=== PATIENT | male | born 1955 | race Caucasian/White ===

== ENCOUNTER → 2018-08-07 | Outpatient (CLI) | payer OTHER, SELFPAY ==
[2014-03-26 10:17] VITALS: BMI 30.4
[2018-08-07 12:52] LABS: PSA,Total - Annual Screen 1.33 ng/mL (0.00-4.00)
== END | disposition home or self-care (01) ==
LOC: LAB 11:26
PROVIDERS: Family Provider Nurse Practitioner Family; PCP Nurse Practitioner Family; Referring Provider Urology; Visit Provider Urology
DX: Z12.5 Encounter for screening for malignant neoplasm of prostate (principal)
CPT/HCPCS: 36415; 84153; G0103

== ENCOUNTER 2018-11-01 08:05 | Emergency (ER) | payer OTHER, SELFPAY ==
[2018-11-01 08:06] VITALS: BP 156/94; PULSE 50; RESP 19; TEMP 36.4; O2SAT 97; BMI 29.9
--- NOTE | 2018-11-01 08:20 | CT_ITS ---
STUDY: CT ABDOMEN AND PELVIS WITHOUT CONTRAST REASON FOR EXAM: Male, 62 years old. Left flank pain. History of kidney stones. Prior lithotripsy. RADIATION DOSAGE (If Supplied By Facility): CTDIvol = ( 19.62 ) mGy, DLP = ( 1093.39 ) mGycm TECHNIQUE: Transaxial images were obtained from the dome of the diaphragm to the symphysis pubis without oral contrast, and without intravenous contrast. Sagittal and coronal images were reconstructed. Individualized dose optimization techniques were used for this CT. COMPARISON: None. FINDINGS: Minimal increased markings at the lung bases suggest some mild scarring. Noncalcified 3 mm nodule in the posterior aspect of the right lower lobe. The visualized portions of the heart are within normal limits. Normal liver. There are surgical clips in the gallbladder fossa consistent with a prior cholecystectomy. Normal spleen. Normal pancreas. Normal bilateral adrenal glands. Normal right kidney. There is evidence of left perinephric stranding. Mild degree of left hydronephrosis and left hydroureter due to a 3 mm calculus in the distal portion of the left ureter. Tiny nonobstructive catheters in the upper pole calyx of the left kidney. There is a small hiatal hernia. Normal small intestine. There are multiple colonic diverticula consistent with diverticulosis. There is a calcified appendicolith. This measures 3.1 mm. There is scattered atherosclerotic calcification of the abdominal aorta, without a demonstrated aneurysm. Normal inferior vena cava. Normal retroperitoneum. Normal urinary bladder. There are prostatic calcifications. Normal abdominal wall. There are degenerative changes of the visualized lumbar spine. CT/Abdomen/Pelvis without Cont IMPRESSION: Mild degree of left hydronephrosis and left perinephric stranding due to a 3 mm calculus in the distal portion of the left ureter. Tiny nonobstructive calculus in the upper pole of the left kidney. Sigmoid diverticulosis. Electronically Signed: Cem Lerner, at 9:57 EDT , Service support ,
--- NOTE | 2018-11-01 08:21 | ED.VISSUMM ---
- ER Visit Summary Date of Service: 11/01/18 Chief Complaint: Left flank pain History of Present Illness: The patient is a 62 M who presents with left flank pain that began today. Patient states the pain began suddenly this morning. Patient describes the pain is stabbing. Patient states the pain is similar to prior kidney stone. Patient states nothing makes the pain better or worse. Patient does admit to some nausea and vomiting this morning. Patient admits to breaking out into a sweat with the pain. Patient denies any fevers or chills. Patient denies any dysuria or hematuria. Patient denies any chest pain or shortness of breath. Physical Examination: Vital signs are stable. Patient is afebrile. Patient is in no acute distress. Oral mucosa is pink and moist. Neck is supple. Trachea is midline. There is no JVD noted. Heart was regular rate and rhythm. Lungs are clear and equal bilaterally. Abdomen is soft. Bowel sounds are normal. There is left CVA tenderness. There is no rebound or guarding noted. Cranial nerves II through XII are intact. There are no focal motor or sensory deficits noted. Test Results: CBC was normal. Basic metabolic profile showed a slightly elevated glucose of 172, BUN of 19, and a creatinine of 1.74. There are no prior lab results to compare with. Urinalysis does not show any evidence of urinary tract infection. CT scan of the abdomen and pelvis shows a 3 mm left distal ureteral calculus with hydronephrosis and hydroureter. Emergency Department Course and Treatment: Patient was given IV fluids, morphine, Toradol, and Zofran here. Patient is feeling better on reevaluation. Patient states he has seen Dr. Gomez in the past. Patient was instructed to follow-up with them in 3-5 days. Patient was given prescription for Snyder. Patient was instructed to drink plenty of fluids. Patient understood and was agreeable with the plan. All questions were answered. Disposition: Discharge home Impression: Left ureteral calculus This note was generated with [employer] dictation software. It may contain incorrect words, spelling, and punctuation that were not noted in review of the chart prior to signing ED Disposition - Plan for ED Patient: Disposition: Home or Assisted Living Diagnosis: Left ureteral calculus Instructions: KIDNEY STONE w/ Colic Prescriptions: Hydrocodone Bitart/Apap 5-325 [Snyder 5MG-325MG] 1 tab PO Q6H PRN PRN 3 Days #10 tab PRN Reason: Pain Prescription Printed Referrals: Az Romero, [facility] [Primary Care Provider] - 3-5 Days
[2018-11-01] MEDS: Ondansetron 4 MG/2 ML Vial IV (08:35)
[2018-11-01] MEDS: 0.9% Normal Saline 1,000 ML 250 ML IV (08:35)
[2018-11-01 08:36] LABS: Absolute Lymphocyte Count 2.06 X10^3/uL (0.83-4.51); Absolute Neutrophil Count 7.8 X10^3/uL (2.0-7.7); Basophil# 0.04 X10^3/uL; Basophil% 0.4 % (0-1); Eosinophil# 0.03 X10^3/uL; Eosinophils% 0.3 % (0-5); Hemoglobin 15.6 g/dL (13.0-16.5); Lymphocyte # 2.06 X10^3/ul (4.0); Lymphocyte % 19.5 % (19-41); Mean Corp Hgb Conc 33.2 g/dL (32-36); Mean Corpuscular Hgb 29.5 pg (27.0-32.0); Mean Platelet Vol. 9.8 fl (6.2-12.0); Monocyte# 0.57 X10^3/uL; Monocyte% 5.4 % (0-10); NRBC Flagged by Analyzer 0 % (0-5); Neutrophil # 7.81 X10^3/uL (2.7-7.7); Neutrophil % 73.9 % (47-70); Platelet Count 191 K/mm3 (150-450); RBC Distribution Width CV 14.1 % (11.6-14.6); Red Blood Count 5.28 M/mm3 (4.6-6.2); White Blood Count 10.6 K/mm3 (4.4-11.0)
[2018-11-01] MEDS: Morphine 4 MG/ML Syringe IV (08:36)
[2018-11-01 08:42] LABS: Anion Gap 8 (5-15); BUN 19 mg/dL (7-18); BUN/Creat Ratio 10.9 RATIO (10-20); Calcium,Total 9.1 mg/dL (8.5-10.1); Chloride 108 mmol/L (98-107); Creatinine, Serum 1.74 mg/dL (0.70-1.30); EST Glomerular Filtration Rate 42 mL/min (>60); Est Glom Filt Rate - Afr Amer 51 mL/min (>60); Estimated Creatinine Clearance 51.94 ml/min; Glucose 172 mg/dL (74-106); Potassium 3.9 mmol/L (3.5-5.1); Sodium Level 142 mmol/L (136-145)
[2018-11-01] MEDS: Ketorolac 15 MG/ML Vial IV (08:49)
[2018-11-01] MEDS: 0.9% Normal Saline 1,000 ML 1000 ML IV (09:32)
[2018-11-01 09:56] LABS: Mucous, Urine 0 SEEN /hpf (<or=2+)
[2018-11-01 09:58] LABS: Color, Urine Yellow (Yellow); Glucose, Dipstick 50 mg/dl (Normal); Ketone-Dipstick Negative (Negative); Leukocyte Esterase-Dipstick 25 /ul (Negative); Nitrite-Dipstick Negative (Negative); Occult Blood-Urine 250 /ul (Negative); Protein-Dipstick 30 mg/dl (Negative); Specific Gravity, Urine 1.025 (1.002-1.030); Urine Bilirubin Dipstick Negative (Negative); Urine Clarity Sl. Cloudy (Clear); Urine Urobilinogen Normal (Normal)
[2018-11-01 10:03] VITALS: BP 192/86; PULSE 90; RESP 16; O2SAT 97
[2018-11-01 10:39] LABS: Red Blood Cells-Urine 25-50 SEEN /hpf (0-5); White Blood Cells 0-5 SEEN /hpf (0-5)
[2018-11-01 10:40] LABS: Bacteria 1+ /hpf (None Seen); Calcium Oxalate Crystals Ur 2+ /hpf (<or=2+); Squamous Epithelial Cells - UA 0-5 SEEN /hpf (0-5)
[2018-11-01] MEDS: HYDROcodone Bitartrate/Apap 5/325 Tablet PO (11:12)
[2018-11-01 11:15] VITALS: BP 179/86; PULSE 52; RESP 16; O2SAT 98
== END 2018-11-01 11:22 | disposition home or self-care (01) ==
PROVIDERS: Emergency Provider Emergency Medicine; Family Provider Nurse Practitioner Family; PCP Nurse Practitioner Family
DX: N13.2 Hydronephrosis with renal and ureteral calculous obstruction (principal); Z87.442 Personal history of urinary calculi
CPT/HCPCS: 74176; 80048; 81001; 85025; 96361; 96374; 96375; 99284; J7030; A4216; J2405

== ENCOUNTER → 2018-11-21 10:00 | Outpatient (CLI) | payer OTHER, SELFPAY ==
[2018-11-01 08:06] VITALS: BMI 29.9
--- NOTE | 2018-11-15 12:48 | RAD_ITS ---
STUDY: X-RAY - ABDOMEN/PELVIS REASON FOR EXAM: Male, 63 years old. Kidney stone of the left but feels he may have passed it. TECHNIQUE: AP supine view. COMPARISON: 05/25/2015. FINDINGS: Normal visualized lung bases. There is an unremarkable bowel gas pattern. There is no demonstrated free abdominal air. The visualized liver, spleen and kidneys are grossly normal in size and morphology. Calcified phleboliths in the right side of the pelvis. No visible radiopaque calculus in the left side of the pelvis. Normal visualized osseous structures. RAD/Abdomen Single View IMPRESSION: Normal x-ray examination of the abdomen and pelvis and without significant change since 05/25/2015. Electronically Signed: Alejandro Contreras MD at 13:10 EDT , Service support ,
== END ==
PROVIDERS: Family Provider Nurse Practitioner Family; PCP Nurse Practitioner Family; Referring Provider Urology; Visit Provider Urology
DX: N20.1 Calculus of ureter (principal)
CPT/HCPCS: 74018